=== PATIENT | female | born 1990 | race Caucasian/White ===

== ENCOUNTER 2019-02-01 15:08 | Outpatient (CLI) | payer BC ==
[~2019-02-01] VITALS: Ht 167.6 cm; Wt 59.1 kg
[2019-02-01] MEDS ORDERED: UNISOM25 MG PO (16:14)
[2019-02-01] MEDS ORDERED: PRENATAL PO (16:14)
[2019-02-01] MEDS ORDERED: PRILOSEC10 MG PO (16:15)
[2019-02-01 16:16] VITALS: BP 106/74; PULSE 74; TEMP 98.3
--- NOTE | 2019-02-01 17:58 | NUR ---
Report to Carmen Osman RN who assumed care at this time.
[2019-02-01 18:32] VITALS: PULSE 82
== END 2019-02-01 18:40 | disposition home or self-care (01) ==
LOC: EUO 15:08
DX: O21.9 Vomiting of pregnancy, unspecified (principal); R11.11 Vomiting without nausea; Z3A.10 10 weeks gestation of pregnancy
CPT/HCPCS: J2405; J7120

== ENCOUNTER 2019-08-29 15:33 | Inpatient (IN) | payer OTHER ==
[~2019-08-29] VITALS: Ht 167.6 cm; Wt 72.7 kg
[2019-08-29] VITALS (27 sets, daily range): BP systolic 97–132; BP diastolic 51–86; PULSE 93–126; TEMP 98.5–99.4
[~2019-08-29 15:33] MED LIST: PRENATAL PO; PRILOSEC10 MG PO; UNISOM25 MG PO
--- NOTE | 2019-08-29 15:35 | NUR ---
1535-G1 40.0 week patient ambulatory to LR 6 with complaint of contractions every 7-8 min and increasing in intensity since 0800. Previous to this was josefina last night every 30 min and irregular. Patient reports membranes swept in office on Thursday by Dr. Naik and has had on and off bloody show discharge since. Denies leaking of fluid and reports good movement. Patient assessment complete. SVE 4-5/70/-2. This is what check in office about 2 hours ago was. Updated on plan of care and updated Dr. Ocasio who is online affiliate marketing manager.
[2019-08-29] MEDS ORDERED: NATURAL IRON65 MG (16:00)
--- NOTE | 2019-08-29 16:10 | NUR ---
1610-Patient to BB. 1640-SVE /-2. Updated MD. Orders recieved to admit patient. IV to left forearm, blood collected and sent to lab.LR infusing per MD orders and protocol. Consents reviewed and signed. Patient requests epidural. 172-BEULAH Valdez notified. 173-BEULAH Valdez to room. Patient sitting upright on bedside for epidural placement. 175-Single shot administered by MD. Patient Denies symptoms of reaction. Tolerates procedure well. 1809-Reported off to CAROLYN Pepe who assumes care of patient at this time.
[2019-08-29 17:34] LABS: BASO % 0.3 % (0.0-2.0); EOS # 0.1 (0.0-0.7); EOS % 0.4 % (0-4.0); GRAN # 11.3 (1.4-6.5); GRAN % 79.4 % (42.2-75.2); HEMATOCRIT 38.1 % (37.0-47.0); HEMOGLOBIN 13.3 g/dl (12.5-16.0); LYMPH # 1.6 (1.2-3.4); LYMPH % 11.2 % (20.0-51.0); MEAN CELL VOLUME 91 fl (80.0-100.0); MEAN CORPUSCULAR HEMOGLOBIN 32 pg (27.0-31.0); MEAN CORPUSCULAR HGB CONC 35 g/dl (33.0-37.0); MONO # 1.2 (0.1-0.6); MONO % 8.2 % (1.7-9.3); PLATELET COUNT 258 K/mm3 (130-400); RED BLOOD COUNT 4.19 M/mm3 (4.10-5.30); REDCELL DISTRIBUTION WIDTH-CV 13.7 % (11.5-14.5)
--- NOTE | 2019-08-29 18:15 | NUR ---
Report received, care assumed. Patient resting in bed, comfortable with epidural. Dr. Ocasio at bedside, SVE with AROM. 7/80/-2 with moderate amount of clear fluid noted. Plan of care reviewed.
--- NOTE | 2019-08-29 18:23 | NUR ---
1823 FHR down to 90 bpm over 1 minute with a spontaneous return to baseline of [address] Ocasio on unit and to patient room, SVE per Dr. Ocasio with no change. Patient turned to left side. Plan of care reviewed.
--- NOTE | 2019-08-29 18:52 | NUR ---
Patient c/o feeling nauseous, emesis x1 noted.
--- NOTE | 2019-08-29 20:00 | NUR ---
SVE with no change. Dr. Ocasio on unit and updated. Orders to start pitocin augmentation. 1954 Pitocin started at 2 mu per orders and protocol.
--- NOTE | 2019-08-29 23:10 | NUR ---
2230 - SVE: complete/+2. 2245 - Patient begins to push with contractions. 230 - Dr. Ocasio to patient room, patient prepped for delivery. 2309 - Spontaneous vaginal delivery of viable female by Dr. Ocasio. Cord clamped and cut and infant to the care of the nursery RN. 2112 - Spontaneous delivery of placenta. Pitocin infusing at 333ml/hr per orders and protocol. Repair of 2nd degree laceration by Dr. Ocasio. 232 - Vag packing placed by Dr. Ocasio.
[2019-08-30] VITALS (10 sets, daily range): BP systolic 89–110; BP diastolic 54–65; PULSE 84–116; TEMP 97.8–98.6
--- NOTE | 2019-08-30 01:45 | NUR ---
Patient dangles in bed, epidural catheter removed, pericare provided, pad and underwear on, gown changed. Vag packing noted to be saturated and a small amount of flow is noted when patient is standing. Patient transfered to wheelchair and taken to room 207.
[2019-08-30 08:43] LABS: HEMATOCRIT 31.3 % (37.0-47.0)
[2019-08-30 08:44] LABS: HEMOGLOBIN 10.8 g/dl (12.5-16.0)
--- NOTE | 2019-08-30 09:30 | NUR ---
to bedside. Field catheter dc'd per order. Vaginal packing dc'd per . Fundus firm. Will monitor closely. Patient ambulates within room, denies dizziness. at bedside.
[2019-08-31 07:55] VITALS: BP 107/67; PULSE 96; TEMP 98
[2019-08-31] MEDS ORDERED: IBU800 M1 PO (10:12)
[2019-08-31] MEDS ORDERED: PERCOCET 325 MG1 TA2 PO (10:12)
== END 2019-08-31 13:35 | disposition home or self-care (01) | DRG 807 ==
LOC: LDRO 15:33 → LDR 15:35 → OB 15:35
PROVIDERS: Obstetrics & Gynecology; ADMIT Obstetrics & Gynecology
PROC: 10E0XZZ Delivery of Products of Conception, External Approach (ICD-10-PCS; principal; 2019-08-29)
PROC: 0KQM0ZZ Repair Perineum Muscle, Open Approach (ICD-10-PCS; 2019-08-29)
PROC: 10907ZC Drainage of Amniotic Fluid, Therapeutic from Products of Conception, Via Natural or Artificial Opening (ICD-10-PCS; 2019-08-29)
DX: O99.02 Anemia complicating childbirth (principal); Z37.0 Single live birth; O99.62 Diseases of the digestive system complicating childbirth; O70.1 Second degree perineal laceration during delivery; K21.9 Gastro-esophageal reflux disease without esophagitis; Z3A.40 40 weeks gestation of pregnancy
CPT/HCPCS: J2405; J2590; J2795; J7120

== ENCOUNTER → 2019-09-08 | Outpatient (CLI) | payer OTHER ==
[~2019-09-08] MED LIST changes: +IBU800 M1 PO; +NATURAL IRON65 MG; +PERCOCET 325 MG1 TA2 PO
--- NOTE | 2019-09-08 14:42 | NUR ---
Pt, Sherrie Franco, presents for outpatient consult with ten day old baby girl, Chely Franco. Pt reports sore nipples to the degree she has started to pump and bottle vs. . Chely was born by on [birth year] and weighed 7#6.5oz (3360 gms). She seemed to nurse okay in the hospital and was staring to gain weight by her first appt with Dr. Hall on 09/02/19 where she weighed 7#3oz. Today Chely weighs 7#12.8oz (3538 gms). Pt states she started pumping and bottle feeding yesterday morning because of nipple soreness. Prior to that she was every 2-3 hours, one breast per feeding. With bottle feeding Chely generally drinks 2oz EBM, with one feeding being 3oz. Pt pumping only one breast per session, collecting about 2 oz per session. With pt is noticably in pain with the latch. LC intervenes and assists with compression of areola and trying to keep baby's jaw open wider with the latch. Pt states it does feel better after a short bit. Latch to the second side is similar and after releasing the nipple on each side compression lines are noted. Total intake after bilateral nursing was 1.3oz (36 gms). Pt advised to continue pump and bottle most feedings to allow nipple healing, but try offering breast 2-3 times each day so baby remains familier with the breast; advised to pump both breast each cycle and offer baby 2-3 oz with bottle feedings; advised to contact Dr. Naik's office for RX of Pedraza's Nipple Cream. Pt works at [employer], although a tongue tie is not prominently noted, the amount of soreness is disporportional to the nipple presentation and baby's ablility to open mouth, so pt may have baby evaluated for oral tethers. POC: as advised above. F/U: next week if not improving. Questions invited and answered.
== END ==
LOC: LAC 12:51
DX: Z39.1 Encounter for care and examination of lactating mother (principal)

== ENCOUNTER → 2019-09-19 | Outpatient (CLI) | payer OTHER ==
--- NOTE | 2019-09-19 13:52 | NUR ---
Pt, Sherrie Franco, presents for follow up consult with 21 day old baby girl, Chely Franco, for evaluation. They were seen at 11 days of age for latching and nipple pain. Chely was born on [birth year] and weighed 7#6.5oz (3359 gms). On 09/08/19 she weighed 7#12.8oz (3538 gms). Today she weighs 9#1.9oz (4136 gms). Pt reports q 1.5-2 hours in the daytime, only getting Chely to nurse one breast per feeding. Pt is electing to pump and bottle feed a noc, even though the nipple soreness is nearly gone. Night feedings are about every 3 hours, and average intake by bottle is 3oz. Pt pumps each feeding and collects about 3 oz. At this appointment pt gets Chely to latch without the jumping and wincing she did at the last consult. She is able to get Chely to each breast, burping part way through each side. Chely seems to get a lot of gas build-up and the extra burping seems to have helped her at this feeding. Total intake from bilaterally was 2.6oz (76gms). POC: Continue ad zenaida, consider moving to more at noc as her confidence with feedings builds. Continue pumping and bottle feeding when not going to breast. F/U: As needed per pt request. Questions invited and answered.
== END ==
LOC: LAC 13:14
DX: Z39.1 Encounter for care and examination of lactating mother (principal); Z71.89 Other specified counseling

== ENCOUNTER 2021-04-19 12:16 | Outpatient (CLI) | payer OTHER ==
[~2021-04-19] VITALS: Ht 167.6 cm; Wt 79.5 kg
--- NOTE | 2021-04-19 12:20 | NUR ---
PT AMBULATORY TO UNIT C/O DECREASED MOVEMENT SINCE LAST NIGHT. STATES "I FEEL HIM MOVE EVERY ONCE IN A WHILE, BUT NOTHING LIKE WITH MY LAST BABY AT THIS STAGE." DENIES LEAKING OF FLUID OR WATER BREAKING BUT STATES "I DID RECENTLY LOSE MY MUCOUS PLUS, AND HAVE HAD DISCHARGE SINCE." STATES SHE HAS HAD INTERMITTENT CONTRACTIONS BUT "THEN THEY GO AWAY." PLACED ON EFM/TOCO. CATEGORY 1 STRIP UPON ARRIVAL. WILL CONTINUE TO MONITOR.
[2021-04-19 12:50] VITALS: BP 99/54; PULSE 98; TEMP 98.8
[2021-04-19 13:20] VITALS: BP 86/58; PULSE 86
--- NOTE | 2021-04-19 13:25 | NUR ---
ALL DC PAPERWORK REVIEWED AND UNDERSTOOD. PT EDUCATED ON "KICK COUNTS". CATEGORY 1 STRIP THROUGHOUT LABOR ASSESSMENT. NO CONTRACTIONS NOTED. PT DENIES FEELING CONTRACTIONS. EDUCATED ON WHEN TO RETURN TO ER/LABOR AND DELIVERY UNIT. DENIES FURTHER QUESTIONS OR CONCERNS. AMBULATORY FROM UNIT WITH FOB.
== END 2021-04-19 13:25 | disposition home or self-care (01) ==
LOC: LDRO 12:16
DX: O36.8130 Decreased fetal movements, third trimester, not applicable or unspecified (principal); Z3A.39 39 weeks gestation of pregnancy

== ENCOUNTER 2021-04-22 18:42 | Inpatient (IN) | payer OTHER ==
[2021-04-22] VITALS (15 sets, daily range): BP systolic 97–155; BP diastolic 53–88; PULSE 93–111
[~2021-04-22] VITALS: Ht 167.6 cm; Wt 80.9 kg
--- NOTE | 2021-04-22 18:45 | NUR ---
To unit via wheelchair for labor assessment, accompanied by spouse. Pt reports " the contractions have been getting stronger since I was at the [facility] office this afternoon, Dr Naik swept my membranes" Oriented to room, monitor, plan of care. Questions invited and answered. SVE as noted.
--- NOTE | 2021-04-22 19:50 | NUR ---
Yossi IMPORT/EXPORT SPECIALIST into room for epidural placement, see anesthesia record. Pt moves to sit on edge of bed, EFM tracing Maternal heart rate.
[2021-04-22 21:06] LABS: BASO % 0.2 % (0.0-2.0); EOS # 0.1 K/mm3 (0.0-0.7); EOS % 1.2 % (0.0-4.0); GRAN # 7.1 K/mm3 (1.4-6.5); GRAN % 70.1 % (42.2-75.2); HEMOGLOBIN 11.9 g/dl (12.5-16.0); MEAN CELL VOLUME 87 fl (80.0-100.0); MEAN CORPUSCULAR HEMOGLOBIN 29 pg (27-31); MEAN CORPUSCULAR HGB CONC 34 g/dl (33.0-37.0); MEAN PLATELET VOLUME 9.9 fl (7.4-10.4); MONO # 0.8 K/mm3 (0.1-0.6); PLATELET COUNT 318 K/mm3 (130-400); RED BLOOD COUNT 4.05 M/mm3 (4.10-5.30); REDCELL DISTRIBUTION WIDTH-CV 13.4 % (11.5-14.5)
[2021-04-22 21:08] LABS: HEMATOCRIT 35.1 % (37.0-47.0)
--- NOTE | 2021-04-22 21:45 | NUR ---
SVE by Dr Naik, Rim. Dr Naik has pt push with 2 contractions, reducing cervical rim. Dr Naik has pt stop pushing as cervical returns between contractions.
--- NOTE | 2021-04-22 22:30 | NUR ---
SVE as noted. Pt relaxed, denies pressure or discomfort. 2245 to RL with peanut ball.
--- NOTE | 2021-04-22 23:13 | NUR ---
SVE complete, pushing instructions given.
--- NOTE | 2021-04-22 23:25 | NUR ---
Pushing well. Straight cath by Dr Naik, large amount clear yellow urine return.
--- NOTE | 2021-04-22 23:41 | NUR ---
of male by Dr Naik. Pt and spouse loving and pleased with . 2349 Placenta delivers spont and intact with 3 vessell cord. 30units Pitocin in 500cc LR piggybacked into mainline IV and started @ 333ml/hr per pump. Perineal repair in progress, pt tolerating well. 0000 Perineal repair complete. Pericare done, ice pack to perineum and bed together.
[2021-04-23] VITALS (13 sets, daily range): BP systolic 94–133; BP diastolic 55–82; PULSE 82–116; TEMP 97.8–98.9
--- NOTE | 2021-04-23 02:00 | NUR ---
attempt to get pt up to bathroom. Pt able to stand @ bedside and lock knees. Pt unable to move legs and walk. Pivot transfer to wheelchair with assist of RN's x 2. transferred to room via wheelchair and pivot transferred to bed. Pt instructed to not get out of bed without staff assistance, verbalizes understanding.
--- NOTE | 2021-04-23 10:45 | NUR ---
Initial visit; Parents thanked Sound System Installer for offering congratulations and God's blessings for the of their son. Sound System Installer thanked family for choosing [facility].
[2021-04-24 01:00] VITALS: BP 99/69; PULSE 78; TEMP 98.2
[2021-04-24 08:44] VITALS: BP 96/70; PULSE 80; TEMP 97.6
--- NOTE | 2021-04-24 10:30 | NUR ---
OFFERED OPTION OF BATH TO PATIENT AT PATIENT'S CONVIENCE, TO NOTIFY STAFF WHEN COMPLETED
== END 2021-04-24 12:35 | disposition home or self-care (01) | DRG 807 ==
LOC: LDRO 18:42 → LDR 18:52 → OB 04-23 02:30
PROVIDERS: ADMIT Obstetrics & Gynecology
PROC: 10E0XZZ Delivery of Products of Conception, External Approach (ICD-10-PCS; principal; 2021-04-22)
PROC: 0KQM0ZZ Repair Perineum Muscle, Open Approach (ICD-10-PCS; 2021-04-22)
PROC: 10907ZC Drainage of Amniotic Fluid, Therapeutic from Products of Conception, Via Natural or Artificial Opening (ICD-10-PCS; 2021-04-22)
DX: O70.1 Second degree perineal laceration during delivery (principal); Z37.0 Single live birth; Z3A.40 40 weeks gestation of pregnancy; Z23 Encounter for immunization
CPT/HCPCS: J2590; J7120